=== PATIENT | male | born 1985 | race African-American/Black ===

== ENCOUNTER 2017-03-07 01:51 | Emergency (ER) | payer MEDICARE, MEDICAID ==
[~2017-03-07] VITALS: Ht 175.3 cm; Wt 78.0 kg
[~2017-03-07 01:51] MED LIST: BENZ1TAB7 PO; FLUO10TA3 PO; RISP4TAB16 PO; [UNRECOGNIZED DRUG - CODE] PO
[2017-03-07 02:35] VITALS: BP 129/73
[2017-03-07] MEDS ORDERED: LORAZEPAM 1MG TABLET PO ONE (02:45)
[2017-03-07] MEDS ORDERED: DIPHENHYDRAMINE 50MG CAPSULE PO ONE (02:45)
[2017-03-07] MEDS ORDERED: IBUPROFEN 600MG TABLET PO ONE (02:45)
== END 2017-03-07 07:10 | disposition home or self-care (01) ==
LOC: ER 01:51
DX: F41.9 Anxiety disorder, unspecified (principal); F20.9 Schizophrenia, unspecified; F12.10 Cannabis abuse, uncomplicated; F16.10 Hallucinogen abuse, uncomplicated; G47.00 Insomnia, unspecified; F17.200 Nicotine dependence, unspecified, uncomplicated; Z79.899 Other long term (current) drug therapy
CPT/HCPCS: 99284; Q0163

== ENCOUNTER 2017-03-15 10:25 | Emergency (ER) | payer MEDICARE, MEDICAID | END 2017-03-15 13:39 | disposition left against medical advice (07) | LOC: ER 10:28 | DX: Z53.21 Procedure and treatment not carried out due to patient leaving prior to being seen by health care provider (principal) ==

== ENCOUNTER 2017-03-16 02:05 | Emergency (ER) | payer MEDICARE, MEDICAID ==
[~2017-03-16] VITALS: Ht 175.3 cm; Wt 77.7 kg
[2017-03-16 07:20] VITALS: BP 138/76
== END 2017-03-16 07:22 | disposition home or self-care (01) ==
LOC: ER 02:06
DX: L89.899 Pressure ulcer of other site, unspecified stage (principal); F17.210 Nicotine dependence, cigarettes, uncomplicated; Z87.828 Personal history of other (healed) physical injury and trauma
CPT/HCPCS: 99283

== ENCOUNTER 2017-08-27 02:56 | Emergency (ER) | payer MEDICARE, MEDICAID ==
[~2017-08-27] VITALS: Ht 175.3 cm; Wt 72.0 kg
[2017-08-27 09:35] VITALS: BP 120/71
== END 2017-08-27 10:05 | disposition home or self-care (01) ==
LOC: ER 02:56
DX: F15.10 Other stimulant abuse, uncomplicated (principal); F17.200 Nicotine dependence, unspecified, uncomplicated
CPT/HCPCS: 99283

== ENCOUNTER 2017-08-28 23:10 | Emergency (ER) | payer MEDICARE, MEDICAID ==
[~2017-08-28] VITALS: Ht 175.3 cm; Wt 75.0 kg
[2017-08-29 00:13] LABS: CHLORIDE 107 mEq/L (98-107)
[2017-08-29 00:15] LABS: BASOPHILS % 0.6 % (0.0-2.0); EOSINOPHILS % 2.5 % (0.0-5.0); HEMOGLOBIN. 14.2 g/dL (14.0-18.0); LYMPHOCYTES % 46.4 % (20.0-50.0); MEAN CORPUSCULAR HEMOGLOBIN 32.4 pg (28.0-32.0); MEAN CORPUSCULAR VOLUME 93.8 fL (80.0-94.0); MEAN PLATELET VOLUME 7.8 fl (7.4-10.4); MONOCYTES % 9.8 % (2.0-8.0); NEUTROPHILS % 40.7 % (40.0-76.0); PLATELET 281 x1000/uL (130-400); RED BLOOD CELL COUNT 4.37 mill/uL (4.7-6.1); RED CELL DISTRIBUTION WIDTH 13.5 % (11.6-14.6)
[2017-08-29 00:30] LABS: CARBON DIOXIDE 29 mEq/L (21-32); ETHANOL BLOOD < 10 mg/dL
[2017-08-29] MEDS ORDERED: DIPHENHYDRAMINE 50MG/ML VIAL IM ONE (01:00)
[2017-08-29] MEDS ORDERED: LORAZEPAM 2MG/ML CPJ IM ONE (01:00)
[2017-08-29 02:09] LABS: GLUCOSE URINE NEGATIVE (NEGATIVE); KETONES URINE NEGATIVE (NEGATIVE); LEUKOCYTE ESTERASE URINE NEGATIVE (NEGATIVE); NITRITE URINE NEGATIVE (NEGATIVE); OCCULT BLOOD URINE NEGATIVE (NEGATIVE); PH URINE 6.5 (4.5-8.0); PROTEIN URINE NEGATIVE (NEGATIVE); SPECIFIC GRAVITY URINE 1.024 (1.005-1.030)
[2017-08-29 02:13] LABS: CLARITY URINE CLEAR (CLEAR); COLOR URINE YELLOW (YELLOW)
[2017-08-29 02:27] LABS: *AMPHETAMINES SCREEN URINE NEGATIVE (NEGATIVE); *BARBITURATES SCREEN URINE NEGATIVE (NEGATIVE); *BENZODIAZEPINES SCREEN URINE NEGATIVE (NEGATIVE); *COCAINE SCREEN URINE PRESUMTIVE POSITIVE (NEGATIVE); CANNABINOID URINE SCREEN NEGATIVE (NEGATIVE); METHADONE URINE SCREEN NEGATIVE (NEGATIVE); OPIATES URINE SCREEN NEGATIVE (NEGATIVE); PHENCYCLIDINE URINE SCREEN NEGATIVE (NEGATIVE)
[2017-08-29 10:52] VITALS: BP 120/69
== END 2017-08-29 11:26 | disposition home or self-care (01) ==
LOC: ER 23:25
DX: F15.10 Other stimulant abuse, uncomplicated (principal); F12.10 Cannabis abuse, uncomplicated; F20.9 Schizophrenia, unspecified
CPT/HCPCS: 36415; 80053; 80305; 80307; 80329; 81003; 85025; 96372; 99284; G0482; J1200; J2060

== ENCOUNTER 2017-08-30 22:30 | Emergency (ER) | payer MEDICARE, MEDICAID ==
[~2017-08-30] VITALS: Ht 175.3 cm; Wt 80.0 kg
[2017-08-30 22:45] VITALS: BP 126/78
== END 2017-08-31 03:30 | disposition left against medical advice (07) ==
LOC: ER 22:30
DX: R42 Dizziness and giddiness (principal); F20.9 Schizophrenia, unspecified
CPT/HCPCS: 99281

== ENCOUNTER 2017-08-31 19:34 | Emergency (ER) | payer MEDICARE, MEDICAID ==
[~2017-08-31] VITALS: Ht 175.3 cm; Wt 77.0 kg
[2017-08-31 20:01] VITALS: BP 119/67
== END 2017-08-31 23:00 | disposition left against medical advice (07) ==
LOC: ER 19:34
DX: Z53.21 Procedure and treatment not carried out due to patient leaving prior to being seen by health care provider (principal)

== ENCOUNTER 2018-03-09 01:37 | Emergency (ER) | payer MEDICARE, MEDICAID ==
[~2018-03-09] VITALS: Ht 175.3 cm; Wt 81.0 kg
[2018-03-09 07:27] LABS: CHLORIDE 103 mEq/L (98-107)
[2018-03-09 07:32] LABS: ETHANOL BLOOD < 10 mg/dL
[2018-03-09 07:35] LABS: BASOPHILS % 0.3 % (0.0-2.0); HEMOGLOBIN. 14.1 g/dL (14.0-18.0); LYMPHOCYTES % 40.9 % (20.0-50.0); MEAN CORPUSCULAR HEMOGLOBIN 30.2 pg (28.0-32.0); MEAN CORPUSCULAR VOLUME 88.3 fL (80.0-94.0); MEAN PLATELET VOLUME 7.9 fl (7.4-10.4); MONOCYTES % 11.3 % (2.0-8.0); NEUTROPHILS % 46.5 % (40.0-76.0); PLATELET 217 x1000/uL (130-400); RED BLOOD CELL COUNT 4.65 mill/uL (4.7-6.1); RED CELL DISTRIBUTION WIDTH 12.9 % (11.6-14.6)
[2018-03-09 10:36] LABS: METHADONE URINE SCREEN NEGATIVE (NEGATIVE)
[2018-03-09 10:37] LABS: *AMPHETAMINES SCREEN URINE NEGATIVE (NEGATIVE); *BARBITURATES SCREEN URINE NEGATIVE (NEGATIVE); *BENZODIAZEPINES SCREEN URINE NEGATIVE (NEGATIVE); *COCAINE SCREEN URINE NEGATIVE (NEGATIVE); CANNABINOID URINE SCREEN PRESUMTIVE POSITIVE (NEGATIVE); OPIATES URINE SCREEN NEGATIVE (NEGATIVE); PHENCYCLIDINE URINE SCREEN NEGATIVE (NEGATIVE)
[2018-03-09 13:47] VITALS: BP 110/72
== END 2018-03-09 15:17 | disposition home or self-care (01) ==
LOC: ER 01:37
DX: F32.9 Major depressive disorder, single episode, unspecified (principal); R45.851 Suicidal ideations; F20.9 Schizophrenia, unspecified; F12.10 Cannabis abuse, uncomplicated; F17.200 Nicotine dependence, unspecified, uncomplicated; Z91.14 Patient's other noncompliance with medication regimen
CPT/HCPCS: 36415; 80048; 80305; 80307; 80329; 85025; 99284; G0482

== ENCOUNTER 2018-05-03 23:11 | Emergency (ER) | payer MEDICARE, MEDICAID ==
[~2018-05-03] VITALS: Ht 175.3 cm; Wt 81.0 kg
[2018-05-04 02:39] LABS: BASOPHILS % 0.7 % (0.0-2.0); EOSINOPHILS % 1.4 % (0.0-5.0); HEMOGLOBIN. 15.5 g/dL (14.0-18.0); LYMPHOCYTES % 21.7 % (20.0-50.0); MEAN CORPUSCULAR HEMOGLOBIN 31.4 pg (28.0-32.0); MEAN CORPUSCULAR VOLUME 93.5 fL (80.0-94.0); MEAN PLATELET VOLUME 7.9 fl (7.4-10.4); MONOCYTES % 4.7 % (2.0-8.0); NEUTROPHILS % 71.5 % (40.0-76.0); PLATELET 326 x1000/uL (130-400); RED BLOOD CELL COUNT 4.92 mill/uL (4.7-6.1); RED CELL DISTRIBUTION WIDTH 13.7 % (11.6-14.6)
[2018-05-04 02:44] LABS: CHLORIDE 107 mEq/L (98-107)
[2018-05-04 02:49] LABS: ETHANOL BLOOD 167 mg/dL
[2018-05-04 03:01] LABS: METHADONE URINE SCREEN NEGATIVE (NEGATIVE)
[2018-05-04 03:02] LABS: *AMPHETAMINES SCREEN URINE NEGATIVE (NEGATIVE); *BARBITURATES SCREEN URINE NEGATIVE (NEGATIVE); *BENZODIAZEPINES SCREEN URINE NEGATIVE (NEGATIVE); CANNABINOID URINE SCREEN NEGATIVE (NEGATIVE); OPIATES URINE SCREEN NEGATIVE (NEGATIVE); PHENCYCLIDINE URINE SCREEN NEGATIVE (NEGATIVE)
[2018-05-04 03:03] LABS: *COCAINE SCREEN URINE NEGATIVE (NEGATIVE)
[2018-05-04] MEDS ORDERED: OLANZAPINE 10 MG/VIAL IM ONE (10:15)
[2018-05-04 10:20] VITALS: BP 125/80
== END 2018-05-04 10:30 | disposition home or self-care (01) ==
LOC: ER 05-04 08:48
DX: F20.9 Schizophrenia, unspecified (principal); F10.20 Alcohol dependence, uncomplicated; R45.851 Suicidal ideations; F17.200 Nicotine dependence, unspecified, uncomplicated; F12.10 Cannabis abuse, uncomplicated; Y90.6 Blood alcohol level of 120-199 mg/100 ml; Z59.0 Homelessness
CPT/HCPCS: 36415; 80048; 80305; 80307; 80329; 85025; 99284; G0482

== ENCOUNTER 2020-07-01 23:40 | Emergency (ER) | payer MEDICARE, OTHER ==
[~2020-07-01] VITALS: Ht 175.3 cm; Wt 89.0 kg
[2020-07-02] MEDS ORDERED: SODIUM CHLORIDE 0.9% 1,000 ML IV ONE (00:13)
[2020-07-02 00:40] LABS: BASOPHILS % 0.6 % (0.0-2.0); EOSINOPHILS % 0.1 % (0.0-5.0); HEMATOCRIT. 42.1 % (42.0-52.0); LYMPHOCYTES % 23.6 % (20.0-50.0); MEAN CORPUSCULAR HEMOGLOBIN 28.9 pg (28.0-32.0); MEAN CORPUSCULAR VOLUME 86.7 fL (80.0-94.0); MEAN PLATELET VOLUME 8.1 fl (7.4-10.4); NEUTROPHILS % 63.7 % (40.0-76.0); PLATELET 309 x1000/uL (130-400); RED BLOOD CELL COUNT 4.85 mill/uL (4.7-6.1); RED CELL DISTRIBUTION WIDTH 13.4 % (11.6-14.6)
[2020-07-02 00:47] LABS: CHLORIDE 106 mEq/L (98-107)
[2020-07-02 00:53] LABS: ETHANOL BLOOD 159 mg/dL
[2020-07-02 06:00] VITALS: BP 122/82
== END 2020-07-02 10:06 | disposition left against medical advice (07) ==
LOC: ER 23:40
DX: F10.229 Alcohol dependence with intoxication, unspecified (principal); Y90.6 Blood alcohol level of 120-199 mg/100 ml; F20.9 Schizophrenia, unspecified; F12.10 Cannabis abuse, uncomplicated; Z79.899 Other long term (current) drug therapy
CPT/HCPCS: 36415; 80053; 80320; 85025; 93005; 96360; 96361; 99284; J7030; G0480

== ENCOUNTER 2020-07-02 22:23 | Emergency (ER) | payer MEDICARE, OTHER ==
[~2020-07-02] VITALS: Ht 175.3 cm; Wt 88.0 kg
[2020-07-03 06:30] VITALS: BP 141/84
== END 2020-07-03 06:48 | disposition home or self-care (01) ==
LOC: ER 22:23
DX: F14.188 Cocaine abuse with other cocaine-induced disorder (principal); Z72.89 Other problems related to lifestyle
CPT/HCPCS: 99285

== ENCOUNTER 2020-07-03 17:29 | Emergency (ER) | payer MEDICARE, OTHER ==
[~2020-07-03] VITALS: Ht 182.9 cm; Wt 91.0 kg
[2020-07-03] MEDS ORDERED: SODIUM CHLORIDE 0.9% 1,000 ML IV ONE (18:32)
[2020-07-03 18:43] LABS: HEMOGLOBIN. 14.1 g/dL (14.0-18.0); MEAN CORPUSCULAR HEMOGLOBIN 29.1 pg (28.0-32.0); MEAN CORPUSCULAR VOLUME 86.8 fL (80.0-94.0); MEAN PLATELET VOLUME 8.7 fl (7.4-10.4); PLATELET 265 x1000/uL (130-400); RED BLOOD CELL COUNT 4.84 mill/uL (4.7-6.1); RED CELL DISTRIBUTION WIDTH 13.7 % (11.6-14.6)
[2020-07-03 18:46] LABS: CHLORIDE 105 mEq/L (98-107)
[2020-07-03 18:49] LABS: PROTHROMBIN TIME 10.7 sec (9.6-11.0)
[2020-07-03 18:50] LABS: ETHANOL BLOOD 65 mg/dL
[2020-07-03 20:02] LABS: PLATELET ESTIMATE NORMAL
[2020-07-03] MEDS ORDERED: OLANZAPINE 5MG TABLET ODT PO ONE (20:45)
[2020-07-04 03:35] LABS: *AMPHETAMINES SCREEN URINE NEGATIVE (NEGATIVE); *BARBITURATES SCREEN URINE NEGATIVE (NEGATIVE); *BENZODIAZEPINES SCREEN URINE NEGATIVE (NEGATIVE); METHADONE URINE SCREEN NEGATIVE (NEGATIVE); OPIATES URINE SCREEN NEGATIVE (NEGATIVE)
[2020-07-04 03:36] LABS: CANNABINOID URINE SCREEN PRESUMTIVE POSITIVE (NEGATIVE); PHENCYCLIDINE URINE SCREEN NEGATIVE (NEGATIVE)
[2020-07-04 04:41] LABS: *COCAINE SCREEN URINE NEGATIVE (NEGATIVE)
[2020-07-04] MEDS ORDERED: ACETAMINOPHEN 325MG TABLET PO ONE (12:00)
[2020-07-04] MEDS ORDERED: IBUPROFEN 800MG TABLET PO ONE (18:00)
[2020-07-04] MEDS ORDERED: ONDANSETRON 4MG ODT PO ONE (21:45)
[2020-07-05] MEDS ORDERED: LORAZEPAM 2MG/ML CPJ IM ONE (18:45)
[2020-07-07] MEDS ORDERED: IBUPROFEN 600MG TABLET PO ONE (22:30)
[2020-07-08] MEDS ORDERED: LORAZEPAM 2MG/ML CPJ IM STA (08:44)
[2020-07-08] MEDS ORDERED: HALOPERIDOL LACTATE 5MG/ML VIAL IM STA (08:44)
[2020-07-08] MEDS ORDERED: IBUPROFEN 200MG TABLET PO ONE (21:15)
[2020-07-08] MEDS ORDERED: IBUPROFEN 400MG TABLET PO NR (21:30)
[2020-07-09] MEDS ORDERED: LORAZEPAM 2MG/ML CPJ IM PRN (03:00)
[2020-07-09] MEDS ORDERED: HALOPERIDOL LACTATE 5MG/ML VIAL IM ONE ×2 (03:00→20:00)
[2020-07-09] MEDS ORDERED: LORAZEPAM 2MG/ML CPJ IM ONE (20:00)
[2020-07-10] MEDS ORDERED: LORAZEPAM 2MG/ML CPJ IM ONE (00:45)
[2020-07-10] MEDS ORDERED: HALOPERIDOL LACTATE 5MG/ML VIAL IM ONE (03:45)
[2020-07-10] MEDS ORDERED: OLANZAPINE 10MG TABLET PO SCH (09:00)
[2020-07-10] MEDS: BENZTROPINE MESYLATE 1MG TABLET PO SCH ×2 (12:44→17:00)
[2020-07-10] MEDS: LORAZEPAM 1MG TABLET PO SCH ×2 (12:44→17:00)
[2020-07-10] MEDS: RISPERIDONE 1MG TABLET PO SCH ×2 (12:44→17:00)
[2020-07-11] MEDS ORDERED: HALOPERIDOL LACTATE 5MG/ML VIAL IM NR (01:45)
[2020-07-11] MEDS ORDERED: IBUPROFEN 600MG TABLET PO ONE (02:30)
[2020-07-11] MEDS ORDERED: LORAZEPAM 2MG/ML CPJ IM ONE (04:15)
[2020-07-11] MEDS: LORAZEPAM 1MG TABLET PO SCH ×2 (10:54→18:15)
[2020-07-11] MEDS: RISPERIDONE 1MG TABLET PO SCH ×2 (10:54→18:15)
[2020-07-11] MEDS: BENZTROPINE MESYLATE 1MG TABLET PO SCH ×2 (10:54→18:15)
[2020-07-12] MEDS: BENZTROPINE MESYLATE 1MG TABLET PO SCH ×2 (09:00→17:20)
[2020-07-12] MEDS: RISPERIDONE 1MG TABLET PO SCH ×2 (09:00→17:20)
[2020-07-12] MEDS: LORAZEPAM 1MG TABLET PO SCH ×2 (09:00→17:20)
[2020-07-13] MEDS ORDERED: LORAZEPAM 1MG TABLET PO ONE ×2 (07:00→17:00)
[2020-07-13] MEDS ORDERED: BENZTROPINE MESYLATE 1MG TABLET PO ONE (07:00)
[2020-07-13] MEDS ORDERED: LORAZEPAM 1MG TABLET ONE (08:57)
[2020-07-13] MEDS: RISPERIDONE 1MG TABLET PO SCH ×2 (09:00→17:55)
[2020-07-13] MEDS ORDERED: RISPERIDONE 1MG TABLET PO SCH (17:00)
[2020-07-13] MEDS: BENZTROPINE MESYLATE 1MG TABLET PO SCH (17:55)
[2020-07-13] MEDS ORDERED: TRAMADOL 50MG TABLET PO ONE (20:30)
[2020-07-14] MEDS: BENZTROPINE MESYLATE 1MG TABLET PO SCH ×2 (09:51→20:09)
[2020-07-14] MEDS: RISPERIDONE 1MG TABLET PO SCH ×2 (09:51→20:09)
[2020-07-14 20:09] VITALS: BP 122/69
[2020-07-15] MEDS ORDERED: LORAZEPAM 2MG/ML CPJ ONE (08:59)
[2020-07-15] MEDS ORDERED: LORAZEPAM 2MG/ML CPJ IV ONE (09:00)
== END 2020-07-15 10:18 | disposition left against medical advice (07) ==
LOC: ER 17:29
DX: R45.851 Suicidal ideations (principal); F12.10 Cannabis abuse, uncomplicated; F10.10 Alcohol abuse, uncomplicated; F20.9 Schizophrenia, unspecified; F19.14 Other psychoactive substance abuse with psychoactive substance-induced mood disorder; R45.1 Restlessness and agitation; Z79.899 Other long term (current) drug therapy; Z20.828 Contact with and (suspected) exposure to other viral communicable diseases; Y04.0XXA Assault by unarmed brawl or fight, initial encounter; Y93.89 Activity, other specified; Y92.89 Other specified places as the place of occurrence of the external cause; Y99.8 Other external cause status; Y90.9 Presence of alcohol in blood, level not specified
CPT/HCPCS: 36415; 70450; 71045; 80053; 80320; 85025; 85610; 93005; 96360; 96361; 99285; C9803; J1630; J2060; J7030; Q0162; U0003; G0480

== ENCOUNTER 2020-09-28 14:05 | Emergency (ER) | payer MEDICARE, MEDICAID ==
[~2020-09-28] VITALS: Ht 182.9 cm; Wt 81.0 kg
[2020-09-28] MEDS ORDERED: SODIUM CHLORIDE 0.9% 1,000 ML IV ONE (14:45)
[2020-09-28 15:03] LABS: BASOPHILS % 0.4 % (0.0-2.0); EOSINOPHILS % 0.1 % (0.0-5.0); HEMOGLOBIN. 14.7 g/dL (14.0-18.0); LYMPHOCYTES % 15.7 % (20.0-50.0); MEAN CORPUSCULAR HEMOGLOBIN 30.6 pg (28.0-32.0); MEAN CORPUSCULAR VOLUME 91.2 fL (80.0-94.0); NEUTROPHILS % 71.8 % (40.0-76.0); PLATELET 286 x1000/uL (130-400); RED BLOOD CELL COUNT 4.82 mill/uL (4.7-6.1); RED CELL DISTRIBUTION WIDTH 14.3 % (11.6-14.6)
[2020-09-28 15:10] LABS: CHLORIDE 108 mEq/L (98-107)
[2020-09-28 15:15] LABS: ETHANOL BLOOD < 10 mg/dL
[2020-09-28 16:33] LABS: CLARITY URINE CLEAR (CLEAR); COLOR URINE DARK YELLOW (YELLOW); KETONES URINE 2+ (NEGATIVE); LEUKOCYTE ESTERASE URINE TRACE (NEGATIVE); NITRITE URINE NEGATIVE (NEGATIVE); OCCULT BLOOD URINE NEGATIVE (NEGATIVE); PROTEIN URINE 1+ (NEGATIVE); SPECIFIC GRAVITY URINE 1.031 (1.005-1.030)
[2020-09-28 16:45] LABS: *BARBITURATES SCREEN URINE NEGATIVE (NEGATIVE); *BENZODIAZEPINES SCREEN URINE NEGATIVE (NEGATIVE); *COCAINE SCREEN URINE NEGATIVE (NEGATIVE); METHADONE URINE SCREEN NEGATIVE (NEGATIVE); OPIATES URINE SCREEN NEGATIVE (NEGATIVE)
[2020-09-28] MEDS ORDERED: DIPHENHYDRAMINE 50MG/ML VIAL IV ONE (16:45)
[2020-09-28 16:46] LABS: *AMPHETAMINES SCREEN URINE NEGATIVE (NEGATIVE); CANNABINOID URINE SCREEN NEGATIVE (NEGATIVE); PHENCYCLIDINE URINE SCREEN NEGATIVE (NEGATIVE)
[2020-09-28] MEDS ORDERED: RISPERIDONE 1MG TABLET PO STA (18:20)
[2020-09-29 16:00] VITALS: BP 133/83
== END 2020-09-29 16:15 | disposition home or self-care (01) ==
LOC: ER 14:05
DX: R45.851 Suicidal ideations (principal); E16.2 Hypoglycemia, unspecified; I10 Essential (primary) hypertension
CPT/HCPCS: 36415; 80053; 80305; 80320; 81003; 85025; 93005; 96361; 96374; 99285; J1200; J7030; G0480

== ENCOUNTER 2020-10-01 17:36 | Emergency (ER) | payer MEDICARE, MEDICAID ==
[~2020-10-01] VITALS: Ht 170.2 cm; Wt 80.0 kg
[2020-10-01 19:24] LABS: BASOPHILS % 0.5 % (0.0-2.0); EOSINOPHILS % 0.7 % (0.0-5.0); HEMATOCRIT. 40.2 % (42.0-52.0); HEMOGLOBIN. 13.5 g/dL (14.0-18.0); LYMPHOCYTES % 30.5 % (20.0-50.0); MEAN CORPUSCULAR HEMOGLOBIN 30.7 pg (28.0-32.0); MEAN CORPUSCULAR VOLUME 91.2 fL (80.0-94.0); MEAN PLATELET VOLUME 8.3 fl (7.4-10.4); MONOCYTES % 12.7 % (2.0-8.0); NEUTROPHILS % 55.6 % (40.0-76.0); PLATELET 260 x1000/uL (130-400); RED BLOOD CELL COUNT 4.41 mill/uL (4.7-6.1); RED CELL DISTRIBUTION WIDTH 14.2 % (11.6-14.6)
[2020-10-01 19:33] LABS: CHLORIDE 106 mEq/L (98-107)
[2020-10-01 19:35] LABS: ETHANOL BLOOD < 10 mg/dL
[2020-10-01] MEDS ORDERED: OLANZAPINE 5MG TABLET PO NR (20:00)
[2020-10-01 23:33] LABS: *COCAINE SCREEN URINE NEGATIVE (NEGATIVE); METHADONE URINE SCREEN NEGATIVE (NEGATIVE); OPIATES URINE SCREEN NEGATIVE (NEGATIVE)
[2020-10-01 23:34] LABS: *AMPHETAMINES SCREEN URINE NEGATIVE (NEGATIVE); *BARBITURATES SCREEN URINE NEGATIVE (NEGATIVE); *BENZODIAZEPINES SCREEN URINE NEGATIVE (NEGATIVE); CANNABINOID URINE SCREEN PRESUMTIVE POSITIVE (NEGATIVE); PHENCYCLIDINE URINE SCREEN NEGATIVE (NEGATIVE)
[2020-10-02 00:32] LABS: CLARITY URINE CLEAR (CLEAR); COLOR URINE DK YELLOW (YELLOW); KETONES URINE TRACE (NEGATIVE); LEUKOCYTE ESTERASE URINE NEGATIVE (NEGATIVE); NITRITE URINE NEGATIVE (NEGATIVE); OCCULT BLOOD URINE NEGATIVE (NEGATIVE); PROTEIN URINE TRACE (NEGATIVE); SPECIFIC GRAVITY URINE 1.029 (1.005-1.030)
[2020-10-02] MEDS: OLANZAPINE 5MG TABLET PO SCH ×2 (01:30→09:40)
[2020-10-03 02:00] VITALS: BP 139/86
== END 2020-10-03 14:47 | disposition home or self-care (01) ==
LOC: ER 17:36
DX: R45.851 Suicidal ideations (principal); I10 Essential (primary) hypertension
CPT/HCPCS: 36415; 80053; 80305; 80320; 81003; 85025; 99285; G0480